=== PATIENT | male | born 1980 | race African-American/Black ===

== ENCOUNTER 2018-07-11 18:00 | Inpatient (IN) ==
--- NOTE | 2018-07-11 18:43 | Diag Imaging Result Doc PS360 ---
EXAM: CHEST-2 VIEWS HISTORY: cough CHF TECHNIQUE: Chest two views COMPARISON: 04/29/2018 FINDINGS: The heart remains enlarged. There is a moderate-sized right-sided pleural effusion. This is larger than on the prior exam. There is basilar atelectasis on the right and there may be underlying infiltrates. The pulmonary vessels are not distended. No left-sided pleural effusion. IMPRESSION: Cardiomegaly with increase in the size of the right pleural effusion, but no pulmonary edema. Electronically signed by Everardo Alvarez 07/11/2018 6:40 PM
[2018-07-11 19:55] LABS: BASO# 0.03 X1000 (0.0-0.2); BASO% 0.4 % (0.0-0.8); EOS# 0.14 X1000 (0.0-0.7); EOS% 1.9 % (0.0-10.0); HEMATOCRIT 44.4 % (42.0-52.0); HEMOGLOBIN 15.1 g/dL (14.0-18.0); LYMPH% 27.2 % (20.5-51.1); MCH 27.5 PG (27-31); MCV 80.9 FL (81-99); MONO# 0.76 X1000 (0.11-0.59); MONO% 10.4 % (1.7-9.3); MPV 10.2 FL (7.4-10.4); NEUT# 4.41 X1000 (1.4-6.5); NEUT% 60.1 % (42.2-75.2); PLT 284 X1000 (130-400); RBC 5.49 XMIL (4.7-6.1); RDW 19.8 % (11.5-14.5); WBC 7.34 X1000 (4.8-10.8)
[2018-07-11 20:24] LABS: AGAP 15; ALB/GLOB RATIO 1.5; ALBUMIN 3.7 g/dL (3.5-5.0); ALKALINE PHOSPHATASE 132 U/L (32-122); BUN 17 mg/dL (8-22); CALCIUM 8.9 mg/dL (8.8-10.2); CHLORIDE 104 mmol/L (98-107); COSMO 285; ESTIMATED GFR > 60; GLUCOSE 104 mg/dL (70-104); GOT 24 U/L (10-34); GPT 15 U/L (10-44); SODIUM 142 mmol/L (136-145); TCO2 23 mmol/L (25-35); TOTAL PROTEIN 6.1 g/dL (6.3-8.3)
[2018-07-11] MEDS ORDERED: LASIX IV ONE ×2 (21:04→22:04)
[2018-07-11 21:29] LABS: URINE SOURCE CLEAN CATCH
[2018-07-11 21:34] LABS: BILIRUBIN URINE SMALL (NEGATIVE); BLOOD URINE SMALL (NEGATIVE); COLOR YELLOW; GLUCOSE URINE NEGATIVE (NEGATIVE); KETONE URINE NEGATIVE (NEGATIVE); LEUKOCYTES URINE NEGATIVE (NEGATIVE); NITRITE URINE NEGATIVE (NEGATIVE); PH URINE 5.5; PROTEIN URINE 300 mg/dL (NEGATIVE); SP GRAVITY URINE 1.016; TURBIDITY URINE CLEAR (CLEAR); UROBILINOGEN URINE 6 mg/dL (NORMAL)
[2018-07-11 21:36] LABS: UR EPITHELIAL CELLS <10 /HPF (<10); URINE BACTERIA NEGATIVE /HPF; URINE RBC <10 /HPF (<10); URINE WBC <10 /HPF (<10)
--- NOTE | 2018-07-11 21:50 | PROVIDER DOCUMENTATION ---
This chart was entered by Migdalia Flowers Scribe, acting as scribe for Arley Mcintyre MD. HPI-Respiratory General - General Chief Complaint: Shortness of Breath Stated Complaint: EDEMA, SOB Time Seen by Provider: 07/11/18 19:13 Source: patient Allergies/Adverse Reactions: Patient Allergies Allergy/AdvReac Type Severity Reaction Status Date / Time No Known Allergies Allergy Verified 04/26/18 12:15 Home Medications: Home Medication List Medication Instructions Recorded Confirmed Last Taken Type Furosemide [Lasix] 40 mg PO BID #60 tab 11/29/17 04/26/18 04/02/18 Rx ROSUVAstatin [Crestor] 20 mg PO DAILY #120 tab 11/29/17 04/26/18 04/02/18 Rx Aspirin 81 mg PO DAILY chewtab 01/14/18 04/26/18 04/02/18 Rx Potassium Chloride E.r. [Micro-K] 10 meq PO BID #60 cap 01/14/18 04/26/18 Rx Digoxin [Lanoxin] 250 microgm PO DAILY #30 tab 02/04/18 04/26/18 04/02/18 Rx Carvedilol [Coreg] 6.25 mg PO Q12HR 04/03/18 04/26/18 04/02/18 History Losartan [Cozaar] 50 mg PO DAILY 04/03/18 04/26/18 04/02/18 History Spironolactone [Aldactone] 25 mg PO BID #60 tab 05/02/18 Unknown Rx - History of Present Illness-Resp Nature of Presenting Problem: Pt is 38/m presenting to ED w/ SOB that has been present and worsening for the last 3 weeks. Pt sts that he has gained 15 lbs in water weight and can no longer lay flat at bedtime. He has been using an O2 machine at home to sleep. Pt has hx of CHF and recent pneumonia. Does take lasix daily. Quality of Pain: reports: none Severity in ED: reports: moderate Onset/Duration: reports: other (3 wks) Timing: reports: still present Context: reports: other (CHF and recent pneumonia) Cough Quality/Degree: reports: no cough Episode Frequency: chronic episodes Current Respiratory Medication Therapy: Initiated none Modifying Factors: improves with: oxygen, sitting upright Associated Symptoms: reports: denies symptoms Similar Symptoms Previously?: Yes Recently seen or treated by another doctor?: No Review of Systems - Adult - REVIEW OF SYSTEMS - ADULT Constitutional: reports: no symptoms reported. denies: chills, fever Eyes: reports: no symptoms reported Ears, Nose, Mouth & Throat: reports: no symptoms reported Cardiovascular: reports: edema. denies: chest pain Respiratory: reports: no symptoms reported, shortness of breath. denies: cough , wheezing Gastrointestinal: reports: no symptoms reported. denies: abdominal pain, nausea , vomiting Genitourinary: reports: no symptoms reported Musculoskeletal: reports: no symptoms reported Integumentary: reports: no symptoms reported Neurological: reports: no symptoms reported. denies: dizziness/vertigo, headache/migraines Psychiatric: reports: no symptoms reported Endocrine: reports: no symptoms reported Hematologic/Lymphatic: reports: no symptoms reported Allergic/Immunologic: reports: no symptoms reported All Other Systems: Reviewed and Negative Past History - Adult - PAST MEDICAL HISTORY-ADULT Review of Records: reports: Old Records Reviewed, Nursing Assessment Review, Medications Reviewed, Social history reviewed & non-contributory. Major Childhood Illnesses: reports: denies history Cardiovascular: reports: CHF, HTN (non-compliant with meds), hyperlipidemia Respiratory: reports: asthma Gastrointestinal: reports: GERD Obstetrical/Gynecological: reports: denies history Genitourinary: reports: denies history Musculoskeletal: reports: denies history Neurological: reports: CVA Psychiatric: reports: denies history Endocrine/Immune: reports: denies history Other Conditions: reports: denies history - PRIOR SURGERIES/PROCEDURES Surgical/Procedure History: reports: reviewed, not pertinent, other (ear sx) - IMMUNIZATION STATUS Childhood Immunizations: See Nurse Assessment Flu Vaccine: See Nurse Assessment - FAMILY HISTORY Family History: CAD over 55 yo - SOCIAL HISTORY Smoking: cigarettes Provider spent 3-5 mins advising pt. on dangers of tobacco.: Discussed manners to quit use, and f/u contacts for add'l counseling. Substance Use: none/never Alcohol Use Frequency: never Living Situation: family Physical Exam-General - PHYSICAL EXAM-ADULT Initial Vital Signs Reviewed: Yes - CONSTITUTIONAL General Appearance: appears well, alert, no apparent distress - EYES Eyes: PERRL/EOMI - HEAD, EARS, NOSE, MOUTH & THROAT HENMT: normocephalic/atraumatic, moist mucous membranes, normal ENT inspection, TMs normal, pharynx normal - NECK Neck: non-tender, full range of motion, supple - RESPIRATORY Respiratory: chest non-tender, lungs clear, normal breath sounds - CARDIOVASCULAR Cardiovascular: normal peripheral pulses, regular rate, rhythm. negative: no edema (Pt has edema to bilateral lower extremities) - LYMPHATIC Lymphatic: no adenopathy - MUSCULOSKELETAL Back Exam: normal inspection, no CVA tenderness Extremity: normal range of motion, non-tender, normal gait, normal inspection - SKIN Integumentary: normal color, warm/dry - NEUROLOGIC Neurologic: grossly normal - PSYCHIATRIC Psych/Mental Status: normal mood/affect, normal thought content, normal thought process, oriented x 3 - HEART Score HEART Score: History: Slightly Suspicious HEART Score: ECG: Normal HEART Score: Age: < or = 45 Years HEART Score: Risk Factors for Atherosclerotic Disease: > or = 3 Risk Factors or History of Atherosclerotic Disease HEART Score: Troponin: < or = Normal Limit Total HEART Score:: 2 Progress - PLAN OF CARE/RESULTS Progress/Plan/Lab Results: Vital Signs - 8 hr 07/11/18 18:13 07/11/18 19:17 07/11/18 19:32 Temperature 98.0 F Pulse Rate 78 71 56 L Respiratory Rate 20 16 10 L Blood Pressure 131/95 121/98 136/100 O2 Sat by Pulse Oximetry 95 97 07/11/18 19:47 07/11/18 20:02 07/11/18 20:17 Temperature Pulse Rate 76 55 L 65 Respiratory Rate 18 18 12 Blood Pressure 132/111 144/105 135/105 O2 Sat by Pulse Oximetry 91 L 97 07/11/18 20:32 07/11/18 20:47 07/11/18 21:02 Temperature Pulse Rate 73 53 L 66 Respiratory Rate 18 18 18 Blood Pressure 137/105 142/98 138/107 O2 Sat by Pulse Oximetry 97 94 L 98 07/11/18 21:17 07/11/18 21:32 07/11/18 21:34 Temperature Pulse Rate 77 Respiratory Rate 18 Blood Pressure 143/107 144/118 O2 Sat by Pulse Oximetry 95 99 91 L 07/11/18 21:43 07/11/18 21:47 07/11/18 22:18 Temperature Pulse Rate Respiratory Rate Blood Pressure 158/128 147/112 136/112 O2 Sat by Pulse Oximetry 98 93 L 93 L 07/11/18 20:20 Influenza Screen - Final Nasopharyngeal Laboratory Results - last 24 hr 07/11/18 07/11/18 07/11/18 19:29 19:29 19:29 WBC 7.34 RBC 5.49 Hgb 15.1 Hct 44.4 MCV 80.9 L MCH 27.5 MCHC 34.0 RDW Std Deviation 19.8 H Plt Count 284 MPV 10.2 Immature Gran % (Auto) 0.0 Neut % (Auto) 60.1 Lymph % (Auto) 27.2 Castro % (Auto) 10.4 H Eos % (Auto) 1.9 Baso % (Auto) 0.4 Immature Gran # (Auto) 0.00 Neut # (Auto) 4.41 Lymph # (Auto) 2.00 Castro # (Auto) 0.76 H Eos # (Auto) 0.14 Baso # (Auto) 0.03 Sodium 142 Potassium 4.0 Chloride 104 Carbon Dioxide 23 L Anion Gap 15 BUN 17 Creatinine 1.0 Estimated GFR/1.73 m2 > 60 BUN/Creatinine Ratio 17 Glucose 104 Calculated Osmolality 285 Calcium 8.9 Total Bilirubin 2.60 H AST 24 ALT 15 Alkaline Phosphatase 132 H Troponin T [id number]-[id number] Pept 9620 H Total Protein 6.1 L Albumin 3.7 Globulin 2.4 Albumin/Globulin Ratio 1.5 Urine Source Urine Color Urine Turbidity Urine pH Ur Specific [place] Urine Protein Ur Glucose (Stick) Ur Ketones (Stick) Urine Blood Urine Nitrite Urine Bilirubin Urobilinogen Dipstick Urine Leukocytes Urine WBC (Auto) Urine RBC (Auto) U Epithel Cells (Auto) Urine Bacteria (Auto) 07/11/18 07/11/18 19:29 20:18 WBC RBC Hgb Hct MCV MCH MCHC RDW Std Deviation Plt Count MPV Immature Gran % (Auto) Neut % (Auto) Lymph % (Auto) Castro % (Auto) Eos % (Auto) Baso % (Auto) Immature Gran # (Auto) Neut # (Auto) Lymph # (Auto) Castro # (Auto) Eos # (Auto) Baso # (Auto) Sodium Potassium Chloride Carbon Dioxide Anion Gap BUN Creatinine Estimated GFR/1.73 m2 BUN/Creatinine Ratio Glucose Calculated Osmolality Calcium Total Bilirubin AST ALT Alkaline Phosphatase Troponin T < 0.010 Pvu-[id number]-Wbiyjxaqquq Pept Total Protein Albumin Globulin Albumin/Globulin Ratio Urine Source CLEAN CATCH Urine Color YELLOW Urine Turbidity CLEAR Urine pH 5.5 Ur Specific [place] 1.016 Urine Protein 300 A Ur Glucose (Stick) NEGATIVE Ur Ketones (Stick) NEGATIVE Urine Blood SMALL A Urine Nitrite NEGATIVE Urine Bilirubin SMALL A Urobilinogen Dipstick 6 A Urine Leukocytes NEGATIVE Urine WBC (Auto) <10 Urine RBC (Auto) <10 U Epithel Cells (Auto) <10 Urine Bacteria (Auto) NEGATIVE Orders Category Date Time Status Saline Loc DIRECTED Care 07/11/18 18:20 Active NPO Diet 07/11/18 18:20 Active CHEST-2 VIEWS [RAD] Stat Exams 07/11/18 18:21 Completed BLOOD CULTURE [BLDCUL] Stat Lab 07/11/18 20:18 Results BNP [PRO B-NATRIURETIC PEPTIDE] Stat Lab 07/11/18 19:29 Completed CBC WITH ELECTRONIC DIFF [HEME] Stat Lab 07/11/18 19:29 Completed COMPREHENSIVE METABOLIC PANEL [CHEM] Stat Lab 07/11/18 19:29 Completed INFLUENZA SCREEN A/B Stat Lab 07/11/18 20:20 Completed TROPONIN T Stat Lab 07/11/18 19:29 Completed URINALYSIS W/POSS RFLX CULT [URINALYSIS] Stat Lab 07/11/18 20:18 Completed Furosemide [Lasix] Med 07/11/18 22:04 Discontinued 20 mg IV NOW ONE Furosemide [Lasix] Med 07/11/18 21:04 Discontinued 40 mg IV NOW ONE EKG [EKG] Stat Ther 07/11/18 18:21 Ordered Transfer/Admit Order [TRANSFER] Routine Transfer 07/11/18 22:11 Ordered Result Diagrams: 07/11/18 19:29 07/11/18 19:29 - XRAY 1 XRAY: Bilateral XRAY Study: Chest Impression: Abnormal (FINDINGS: The heart remains enlarged. There is a moderate- sized right-sided pleural effusion. This is larger than on the prior exam. There is basilar atelectasis on the right and there may be underlying infiltrates. The pulmonary vessels are not distended. No left-sided pleural effusion. IMPRESSION: Cardiomegaly with increase in the size of the right pleural effusion, but no pulmonary edema. Electronically signed by Everardo Alvarez 07/11/2018 6:40 PM 07/11/18 1840) Departure - Departure Date of Disposition Decision: 07/11/18 Time of Disposition Decision: 21:50 DIAGNOSIS: CHF exacerbation Qualifiers: Heart failure type: unspecified Qualified Code(s): I50.9 - Heart failure, unspecified Disposition: ADMITTED INPATIENT 09 Certified Medical Emergency: Emergent Condition: Stable Referrals and Follow-Ups: Lamberto Conteh Jr, MD [Primary Care Provider] - - Critical Care Note This patient required my direct & personal management of CC.: No Attestation - Physician/ ANTONINA Attestation Patient care was provided by Advanced Practice Provider:: No The physician spent face to face time with patient:: Yes Advanced Practice Provider documentation review:: Supervising physician onsite and consulted in the evaluation and care of this patient. The physician did have a face to face encounter with the patient. This chart was documented by the indicated scribe, (Migdalia Flowers, [place]) and accurately reflects the services I performed and decisions made by me, Arley Mcintyre MD, as attested by the provider's signature.
[2018-07-11] MEDS ORDERED: ZOFRAN IV PRN (22:30)
[2018-07-11] MEDS ORDERED: TYLENOL PO PRN (22:30)
--- NOTE | 2018-07-11 23:04 | HISTORY AND PHYSICAL ---
PRIMARY PHYSICIAN: Dr. Lamberto Conteh. REASON FOR ADMISSION: Shortness of breath for the last 1 week and abdominal and leg swelling for the last couple of weeks. HISTORY OF PRESENT ILLNESS: Mr. Darrin Schwartz is a 38-year-old man with a longstanding history of chronic systolic heart failure with ejection fraction of about 10% to 15%. He comes in complaining of about a 3-week history of leg swelling, 2-week history of abdominal swelling, and 1 week of progressive dyspnea on exertion with orthopnea and a nonproductive cough. He denies any fever, chills or weight loss. He denies any chest pain with this. He also says that for the last couple of days he has been having PND. He says he also complains of easy satiety with aforementioned simultaneous abdominal swelling. His urine output has not changed. He states he has been compliant with his home medications and does not take any czkr-[id number] medications or eat any canned foods whatsoever. REVIEW OF SYSTEMS: Notable for nothing. No upper respiratory symptoms. He denies any bleeding from any orifice. No complaints. No GI complaints. No arthralgia or rash. ALLERGIES: No known drug allergies. MEDICATIONS: Have not been reconciled, though he says he takes Lasix 40 mg twice a day, and an aspirin. As far as the other medications concerned, he cannot tell me any more than this. PAST SURGICAL HISTORY: He has had right ear surgery . FAMILY HISTORY: Notable for heart disease and diabetes. SOCIAL HISTORY: Smokes a few cigarettes a day. He states he no longer engages in cocaine or marijuana use since last year. LAB WORK: White count 7000, hemoglobin and hematocrit 15 and 44, platelets 284. There is a normal differential. His BUN is 17, creatinine 1.0. Total bilirubin is 2.6. Alkaline phosphatase is 132, but AST and ALT are normal. Troponin is negative. ProBNP 9000. Urinalysis showed 200 protein. His flu screen was negative. Chest x-ray shows increased right pleural effusion with cardiomegaly. No increased vascular markings. EKG at this point in time was ordered but has not been performed. PHYSICAL EXAMINATION: VITAL SIGNS: Blood pressure is 136/112, heart rate 77, respiratory rate 18, temperature 98 degrees. He is 93% on 2 L. GENERAL: This is a middle-aged male who is in mild respiratory distress with mild use of accessory muscles. He is sitting up in bed. He is alert and oriented. Has a normal mood and affect. HEENT: Head is normocephalic, atraumatic. Eyes PERRL, EOMI. He is anicteric, not pale. ENT: Oropharynx exam is grossly normal. NECK: Supple. Mild JVD. No bruits or thyromegaly. CHEST: He has decreased air entry in his right lung. Decreased vocal resonance. Increased dullness to percussion in his right lower lung. He has bilateral lung wheezes. No crepitations heard. CARDIOVASCULAR: First and 2nd heart sounds heard. No murmurs, gallops or rubs. Rhythm is regular. ABDOMEN: Distended with an everted umbilicus. Bowel sounds are hypoactive. No masses or megaly appreciated. RECTAL EXAM: Deferred at this time. EXTREMITIES: The patient has 2+ pitting edema up to his knees. His distal lower extremity pulses are barely palpable, and his lower extremities are cool to touch. His distal upper extremity pulses are 1+, regular and symmetrical. No clubbing or peripheral cyanosis noted. SKIN: Intact. No breakdown, lesion or erythema. MUSCULOSKELETAL: Grossly normal. ASSESSMENT: 1. Right pleural effusion. Etiology could be multifactorial, i.e., chronic congestive heart failure with possible underlying mass, although infection is a differential, highly unlikely. I will plan to aggressively diurese the patient over the next 48 hours. If the patient's symptoms do not improve and his right pleural effusion persists, then a therapeutic/diagnostic thoracentesis will be needed. Would recommend resuming all the patient's anti-failure medications and consult Cardiology to see the patient. The patient will be on higher doses of Lasix than he takes at home, and symptomatic treatment with DuoNeb. 2. Chronic obstructive pulmonary disease. Consider DuoNeb. 3. Hypertension. Continue anti-failure medications when available for blood pressure control. 4. The patient will have serial chest films and basic metabolic panel to document response to our treatment. If the patient is still symptomatic and keeps having repeated admissions, he may be a candidate for Entresto. Consider possibility of defibrillator placement due to his low ejection fraction and systolic heart failure. Defer to pt sitter. cc: Min Jiménez MD
[2018-07-11] MEDS: DUONEB (A & A) INH SCH (23:07)
[2018-07-11] MEDS: LASIX IV SCH (23:24)
[2018-07-11] MEDS: LOVENOX SUBQ SCH (23:24)
[2018-07-12 05:35] LABS: BASO# 0.05 X1000 (0.0-0.2); BASO% 0.7 % (0.0-0.8); EOS% 2.6 % (0.0-10.0); HEMATOCRIT 43.8 % (42.0-52.0); HEMOGLOBIN 14.9 g/dL (14.0-18.0); LYMPH% 27.7 % (20.5-51.1); MCH 27.7 PG (27-31); MCV 81.4 FL (81-99); MONO# 0.71 X1000 (0.11-0.59); MONO% 9.4 % (1.7-9.3); NEUT# 4.52 X1000 (1.4-6.5); NEUT% 59.6 % (42.2-75.2); PLT 304 X1000 (130-400); RBC 5.38 XMIL (4.7-6.1); RDW 19.8 % (11.5-14.5); WBC 7.58 X1000 (4.8-10.8)
[2018-07-12 06:17] LABS: AGAP 14; BUN 16 mg/dL (8-22); CALCIUM 8.9 mg/dL (8.8-10.2); CHLORIDE 101 mmol/L (98-107); COSMO 289; CREATININE 0.9 mg/dL (0.7-1.2); ESTIMATED GFR > 60; GLUCOSE 221 mg/dL (70-104); POTASSIUM 3.3 mmol/L (3.5-5.1); SODIUM 141 mmol/L (136-145); TCO2 26 mmol/L (25-35)
[2018-07-12] MEDS: LASIX IV SCH ×2 (06:21→13:42)
[2018-07-12] MEDS: DUONEB (A & A) INH SCH ×5 (07:31→23:03)
[2018-07-12] MEDS: COREG PO SCH ×2 (08:46→21:09)
[2018-07-12] MEDS: ASPIRIN PO SCH (08:46)
[2018-07-12] MEDS: KLOR-CON PO SCH ×2 (08:46→21:09)
--- NOTE | 2018-07-12 13:22 | PROGRESS NOTE ---
DATE: 07/12/2018 SUBJECTIVE: This morning Mr. Schwartz refers to be doing a little better. He thinks his breathing is improving and swelling in the lower extremities is getting better Mr. Schwartz is known to have severe systolic heart failure, and he refers to be compliant with his medication. However, for the past couple days, he has been getting remarkably swollen and short of breath. OBJECTIVE: Vitals: Blood pressure is 123/93, pulse is 72, respiration is 19 and temperature is 97.7 degrees. The patient was saturating 100% on 2 L of oxygen. General exam: Mr. Schwartz is a 28-year-old gentleman. He is in bed. He was not in any cardiopulmonary distress. HEENT: Mucosa is pink and moist. Anicteric. Acyanotic. Neck: Supple. Chest: Air entry is bilaterally reduced. There are crepitations in both posterior lung funez. Cardiovascular: Regular rate and rhythm. I did not appreciate any murmurs. Abdomen: Soft. It is distended. There is positive hepatosplenomegaly palpated. There is also positive hepatojugular reflux and both jugular veins are dilated as well. Extremities: About 3+ pedal edema. : Unremarkable. DIAMOND SANDER: Patient is awake, alert, oriented, very conversational. No focal deficits. LABORATORY DATA: WBC is 7.58, hemoglobin is 14.9, platelet count of 304. Chemistry is also reviewed: Potassium is 3.2. The rest of chemistry is unremarkable. The patient's pro B is 9620. This is remarkably worse than the last time he was in the hospital. IMAGING STUDIES: A chest x-ray shows cardiomegaly with increase in the size of the right pleural effusion, but no pulmonary edema. Intake/output: Urine output is 1975 overnight. The patient is currently negative balance of 2150. CURRENT MEDICATIONS: 1. Aspirin 81 mg daily. 2. Coreg 6.25 b.i.d. 3. Lovenox for DVT prophylaxis. 4. Lasix 60 mg IV q. 8 hours. 5. Potassium 10 mg b.i.d. daily. ASSESSMENT: 1. Acute hypoxemic respiratory failure secondary to pulmonary edema. The patient continues to be on nasal cannula oxygenation. Saturation is up to 100 this morning. 2. Bilateral pleural effusions with some pulmonary edema, secondary to congestive heart failure. 3. Acute on chronic severe systolic heart failure with ejection fraction of 11% on a recent stress test done on 11/29/2017. 4. Severe dilated cardiomyopathy, presumably nonischemic. However, a stress test that was done November 2017 was suggestive of ischemic components. Will be pending Cardiology evaluation and go from there. I think Mr. Schwartz will benefit from a left heart catheterization to rule out any correctable coronary artery disease. 5. History of alcohol abuse in the past noted. 6. Hypertension is controlled. PLAN: So, in general, I think Mr. Schwartz is in acute congestive heart failure exacerbation. We are going to continue with the diuretic therapy and his other home medications. I think he carries the diagnosis of nonischemic cardiomyopathy. However, a stress test done in 2017 did show that he definitely also has coronary artery disease (ischemic cardiomyopathy). Will be pending cardiology evaluation this time. I think Mr. Schwartz would benefit from a left heart catheterization to rule out any correctable coronary artery disease and probably evaluate at a later date for AICD. cc: Khris Westbrook MD
[2018-07-12] MEDS: ENTRESTO 24 MG-26 MG TABLET PO SCH ×2 (13:42→21:09)
[2018-07-12] MEDS: LOVENOX SUBQ SCH (21:09)
[2018-07-13] MEDS: LASIX IV SCH ×2 (01:32→13:09)
[2018-07-13 05:59] LABS: BASO# 0.04 X1000 (0.0-0.2); BASO% 0.5 % (0.0-0.8); EOS# 0.24 X1000 (0.0-0.7); HEMATOCRIT 43.1 % (42.0-52.0); HEMOGLOBIN 14.8 g/dL (14.0-18.0); IMM GRAN# 0.02 X1000 (0.0-0.04); IMM GRAN% 0.2 % (0.0-0.5); LYMPH# 1.84 X1000 (1.2-3.4); LYMPH% 22.7 % (20.5-51.1); MCH 27.6 PG (27-31); MCHC 34.3 g/dL (33-37); MCV 80.4 FL (81-99); MONO# 0.87 X1000 (0.11-0.59); MONO% 10.7 % (1.7-9.3); MPV 10.8 FL (7.4-10.4); NEUT# 5.11 X1000 (1.4-6.5); NEUT% 62.9 % (42.2-75.2); PLT 304 X1000 (130-400); RBC 5.36 XMIL (4.7-6.1); RDW 19.7 % (11.5-14.5); WBC 8.12 X1000 (4.8-10.8)
[2018-07-13 06:38] LABS: AGAP 12; ALBUMIN 3.3 g/dL (3.5-5.0); BUN 13 mg/dL (8-22); CALCIUM 8.7 mg/dL (8.8-10.2); CHLORIDE 96 mmol/L (98-107); COSMO 274; CREATININE 0.9 mg/dL (0.7-1.2); ESTIMATED GFR > 60; GLUCOSE 93 mg/dL (70-104); PHOSPHORUS 4.5 mg/dL (2.7-4.5); POTASSIUM 3.1 mmol/L (3.5-5.1); SODIUM 137 mmol/L (136-145); TCO2 29 mmol/L (25-35)
[2018-07-13] MEDS: DUONEB (A & A) INH SCH ×5 (07:35→23:32)
[2018-07-13] MEDS ORDERED: KLOR-CON PO ONE (07:35)
[2018-07-13] MEDS: COREG PO SCH ×3 (08:18→20:59)
[2018-07-13] MEDS: ENTRESTO 24 MG-26 MG TABLET PO SCH (08:19)
[2018-07-13] MEDS: ASPIRIN PO SCH (08:19)
[2018-07-13] MEDS: KLOR-CON PO SCH ×3 (08:19→20:59)
--- NOTE | 2018-07-13 10:03 | Diag Imaging Result Doc PS360 ---
EXAM: CHEST-2 VIEWS - 07/13/2018 HISTORY: R pleural effusion CHF TECHNIQUE: Chest two views COMPARISON: 07/11/2018 FINDINGS: There is been mild decrease in right chest opacity compared to prior. There is persistent moderate subpulmonic pleural effusion and/or elevated hemidiaphragm on the right. The left lung appears mostly clear. There is no substantial left pleural effusion identified. There is no pneumothorax identified. IMPRESSION: Mild decrease in right chest opacity compared to prior. Persistent moderate subpulmonic pleural effusion and/or elevated hemidiaphragm on the right. Electronically signed by Felton Dickinson 07/13/2018 10:00 AM
--- NOTE | 2018-07-13 12:17 | PROGRESS NOTE ---
DATE: 07/13/2018 CARDIOLOGY FOLLOW-UP NOTE: SUBJECTIVE: Patient continues without shortness of breath on room air. There has been no chest pain. He has not been able to afford Entresto, as he has no health insurance and does not have Medicaid. He has disability application in progress, and it is pending. OBJECTIVE: Vital Signs: Blood pressure 118/80, heart rate 69 and regular, oxygen saturation 95%. Neck: Significant jugular distention is evident, consistent with markedly elevated central venous pressure. Chest: Clear to auscultation bilaterally. Cardiac: Exam reveals a regular rate and rhythm without appreciable murmur or gallop. Extremities: Demonstrate 2+ pretibial edema. LABORATORY DATA: Includes a white blood cell count 8.12, hematocrit 43.1, hemoglobin 14.8, platelet count 304,000. Sodium 137, potassium 3.1, chloride 96, carbon dioxide 29, BUN 13, creatinine 0.9, glucose 93, albumin 3.3. IMPRESSION: 1. Acute on chronic systolic heart failure. 2. Severe nonischemic cardiomyopathy. 3. Hypertensive cardiovascular disease. RECOMMENDATIONS: 1. Continue efforts to diurese with IV Lasix. 2. Given patient's financial difficulty, he will not be able to afford Entresto. We will go back to using losartan as previously. 3. Ultimately, patient needs to be referred to Electrophysiology arrhythmia service for consideration of implantable defibrillator. 4. The patient again advised that he is disabled from a cardiovascular standpoint due to severe cardiomyopathy. cc: Perez Mckenna MD
--- NOTE | 2018-07-13 13:15 | PROGRESS NOTE ---
DATE: 07/13/2018 SUBJECTIVE: This morning, Mr. Schwartz refers to be doing fairly okay. He was resting very comfortably in bed. No family member was there. He denies any chest pain or shortness of breath. OBJECTIVE: Vital Signs: Blood pressure is 140/86, pulse of 77, respirations 18, temperature 98.2 degrees. The patient's intake and output showed urine output was 4725. The patient is currently in negative balance of 4780. Current weight not documented today. General: Mr. Schwartz is a 38- year-old gentleman. He was in bed. He did not seems to be in any cardiopulmonary distress. HEENT: Mucosa is pink and moist. Anicteric. Acyanotic. Neck: Supple. There is still JVD. Chest: Air entry was bilaterally reduced. There are crepitations posteriorly. Cardiovascular: Regular rate and rhythm. No murmurs, no rubs, no gallops. Abdomen: Soft. It is minimally distended. There is positive hepatosplenomegaly, and there is positive hepatojugular reflux. Extremities: There is 3+ pedal edema. [employer]: The patient is awake, alert, and oriented. LABORATORY DATA: WBC is 8.12, hemoglobin is 14.8, platelet count of 308,000. Chemistry is also reviewed. Potassium is 3.1. Rest of the chemistry is unremarkable. CURRENT MEDICATIONS: Include: 1. Aspirin 81 mg daily. 2. Carvedilol 6.25 p.o. every 12 hours. 3. Lovenox for DVT prophylaxis. 4. Lasix 60 mg IV every 12 hours. 5. Losartan 25 mg daily. ASSESSMENT: 1. Acute hypoxemic respiratory failure on presentation due to pulmonary edema, improved. The patient is currently cycling between room air and 4 L of nasal cannula, and a chest x-ray reveals mild decrease in the right opacity. There is still persistent moderate subpulmonic pleural effusion. 2. Bilateral pleural effusion with pulmonary edema secondary to congestive heart failure. 3. Acute on chronic severe systolic heart failure with ejection fraction of 11%. The patient is being seen by Cardiology as well. 4. Severe dilated cardiomyopathy, presumably nonischemic. A stress test done in 11/2017 does, however, suggest some ischemic component. Cardiology is on board. 5. History of alcohol abuse. The patient has been counseled. 6. Hypertension is controlled. PLAN: In general, Mr. Schwartz is a 38-year-old gentleman who is known to have dilated nonischemic cardiomyopathy, congestive heart failure with ejection fraction of 11%. It has been documented multiple times that he is not very compliant with his medications and with his diet. He has been in the hospital for the past 2 days because of fluid overload and respiratory distress from pulmonary edema. He seems to be doing a lot better. He is diuresing well on the current diuretic regimen. He has been seen by Cardiology. Entresto has been changed to losartan because of fear of not being able to afford. Disposition is going to depend on his hospital course. cc: Khris Westbrook MD
[2018-07-13] MEDS: LOVENOX SUBQ SCH ×2 (19:40→20:59)
[2018-07-14] MEDS: LASIX IV SCH ×2 (00:39→12:29)
[2018-07-14 06:08] LABS: AGAP 11; BUN 14 mg/dL (8-22); CHLORIDE 100 mmol/L (98-107); COSMO 281; CREATININE 0.9 mg/dL (0.7-1.2); ESTIMATED GFR > 60; GLUCOSE 115 mg/dL (70-104); POTASSIUM 3.8 mmol/L (3.5-5.1); SODIUM 140 mmol/L (136-145); TCO2 29 mmol/L (25-35)
[2018-07-14] MEDS: DUONEB (A & A) INH SCH ×5 (07:25→23:17)
[2018-07-14] MEDS ORDERED: COZAAR PO SCH (09:00)
[2018-07-14] MEDS: ASPIRIN PO SCH (09:03)
[2018-07-14] MEDS: COREG PO SCH ×2 (09:03→20:35)
[2018-07-14] MEDS: KLOR-CON PO SCH ×2 (09:03→20:35)
--- NOTE | 2018-07-14 09:48 | CONSULTATION ---
DATE OF CONSULTATION: 07/12/2018 IMPRESSION: 1. Acute on chronic systolic heart failure. 2. Severe dilated nonischemic cardiomyopathy. He has had multiple admissions over the past 6 months for recurrent congestive heart failure. 3. Hypertension. RECOMMENDATIONS: 1. Diurese with IV Lasix. 2. Switch from Losartan to Entresto as tolerated 3. Echocardiography to be repeated. HISTORY: This 38-year-old male has a history of severe nonischemic dilated cardiomyopathy, chronic systolic heart failure with multiple exacerbations in the last 6 months, and hypertension. He was admitted to the emergency room with recurrent CHF. He reports a 2-week history of increased tendency for edema and a 10-day history of progressive shortness of breath and orthopnea symptoms. There has been no chest pain. He relates that most recently his Lasix did not seem to give him much diuretic effect. He has been found to have objective evidence of acute on chronic systolic heart failure and has been started on IV Lasix for diuresis. He is starting to feel better already. PAST MEDICAL HISTORY: 1. Severe dilated nonischemic cardiomyopathy with left ventricular ejection fraction of 15% to 20% by echocardiography about 6 months ago. 2. Hypertension. PAST SURGICAL HISTORY: Includes unspecified right ear surgery. ALLERGIES: No known drug allergies. MEDICATIONS PRIOR TO ADMISSION: As listed. SOCIAL HISTORY: He smokes less than a half pack of cigarettes per day. He has a previous history of cocaine use but no longer uses this. FAMILY HISTORY: Negative for premature coronary disease. REVIEW OF SYSTEMS: PULMONARY: Noteworthy for progressive dyspnea. There has been no significant cough. GASTROINTESTINAL: Negative. CONSTITUTIONAL: Negative. Remainder of review of systems negative/noncontributory with 14 total systems reviewed. PHYSICAL EXAMINATION: GENERAL: This is an adult male in no distress. VITAL SIGNS: Blood pressure 124/89, heart rate 59, oxygen saturation 99% on nasal cannula oxygen at 2 L/minute. HEENT: Extraocular muscles appear intact. Mucous membranes are moist. NECK: Supple. Jugular venous distention is evident, suggesting elevated central venous pressure. CHEST: Clear to auscultation bilaterally. CARDIAC: Exam reveals a regular rate and rhythm without appreciable murmur or gallop. ABDOMEN: Soft. Bowel sounds audible. EXTREMITIES: Demonstrate mild pretibial edema. NEUROLOGIC: Exam reveals him to be alert and fully oriented. His speech is full, and he moves all 4 extremities equally well. SKIN: Warm and dry. PSYCHIATRIC: Exam reveals his mood to be appropriate. LABORATORY DATA: Includes a white blood cell count of 7.58, hematocrit of 43.8, hemoglobin of 14.9, platelet count of 304. Sodium 141, potassium 3.3, chloride 101, carbon dioxide 26, BUN 16, creatinine 0.9. Glucose 221. TSH 3.3. Troponin-T less than 0.01. ProB natriuretic peptide level 9620. DIAGNOSTICS: Twelve-lead ECG not yet recorded in electronic medical record. cc: Perez Mckenna MD
--- NOTE | 2018-07-14 14:54 | PROGRESS NOTE ---
DATE: 07/14/2018 INTERVAL HISTORY: The patient's dyspnea has essentially resolved at this point. Denies cough, wheezing, shortness of breath. Reports that he has oxygen off most of the night and appears to have had reasonable O2 saturations. Still has complaints of lower extremity edema. This is somewhat improved from previous. No other new complaints. N other acute events overnight. REVIEW OF SYSTEMS: A 12 point review of systems is negative except as per interval history. LABS: Basic metabolic panel unremarkable aside from glucose 115. BNP 4399, significantly improved from previous 9620. VITAL SIGNS: T-max 98.2 degrees, pulse 81, respirations 19, blood pressure 118/ 98, O2 saturation 100% on room air. PHYSICAL EXAMINATION: General: No acute distress. Vitals: As above. HEENT: Normocephalic, atraumatic. Moist mucous membranes. No cervical adenopathy. Cardiovascular: Regular rate and rhythm. No murmurs, rubs, or gallops. Pulmonary: Clear to auscultation bilaterally. No wheezing, rales, or rhonchi. Abdomen: Soft, nontender, nondistended. Bowel sounds positive. Extremities: Peripheral pulses decreased but intact. There is 2 to 3+ pitting edema bilaterally to the knee. No clubbing or cyanosis. Neurologic: Cranial nerves grossly intact. No focal deficits identified. Psychiatric: Normal mood and affect. Awake, alert, oriented x3. Skin: No new rashes or lesions identified. ASSESSMENT AND PLAN: 1. Acute on chronic systolic congestive heart failure: Last known ejection fraction 11%. Patient admitted with mild edema and bilateral pleural effusions. Dyspnea now essentially resolved with aggressive diuresis. Pleural effusion appears to be somewhat improved. BNP significantly better than on admission. Cardiology wants to continue aggressive diuresis for one more day. Likely discharge tomorrow. They have no plans for a left heart catheterization at this time. They do recommend outpatient evaluation for automatic implantable cardioverter defibrillator placement. 2. Dilated cardiomyopathy with ejection fraction as above. Last stress test 2017 with some suggestion of a chronic ischemic component. Cardiology following. 3. History of alcohol abuse. The patient has cut back recently. He has been counseled on cessation. 4. Hypertension, well controlled on current regimen. 5. Chronic obstructive pulmonary disease. Does not appear to be in exacerbation at this time. DuoNebs as needed. [facility]
--- NOTE | 2018-07-14 15:47 | ECHO REPORT ---
ORDER DATE: 07/12/2018 INTERPRETING PHYSICIAN: Ben Terrazas MD ECHOCARDIOGRAPHIC MEASUREMENTS: Interventricular septum 1.0 cm. Left ventricular posterior wall 0.9 cm. Diastolic diameter 6.7 cm. Left atrium 4.6 cm. Aorta 3.3 cm. SUMMARY OF THE 2-DIMENSIONAL IMAGING: Left ventricle was dilated with severely reduced systolic function. Estimated ejection fraction of 55%. There is severe restrictive physiology suggestive of diastolic dysfunction. Aortic valve leaflets are trileaflet. Mitral valve was normal. Tricuspid valve was normal. Pulmonic valve was normal. There is no aortic stenosis. There is trivial aortic regurgitation. There is mild mitral regurgitation. There is moderate tricuspid regurgitation. Peak velocity across the tricuspid valve was 2.5 m/sec. Pulmonary artery systolic pressure of 35 to 40 mmHg. There is no pericardial effusion or obvious intracardiac mass or thrombus seen. cc: MD Perez Marin MD
--- NOTE | 2018-07-14 17:32 | PROGRESS NOTE ---
DATE: 07/14/2018 SUBJECTIVE: The patient continues without shortness of breath or chest discomfort. He is currently on nasal cannula oxygen. OBJECTIVE: Vital Signs: Blood pressure 118/94, heart rate 80, oxygen saturation 98% on nasal cannula oxygen at 3 L/minute. Neck: Jugular venous distention is evident consistent with elevated central venous pressure. Chest: Clear to auscultation. Cardiac: Regular rate and rhythm without appreciable murmur or gallop. Extremities: Demonstrate trace ankle edema. LABORATORY DATA: Includes a sodium of 140, potassium 3.8, chloride 100, carbon dioxide 29, BUN 14 creatinine 0.9. Glucose 115, pro B-natriuretic peptide level 4399. IMPRESSION: 1. Vyvpo-[id number] systolic heart failure. 2. Severe nonischemic cardiomyopathy. 3. Hypertensive cardiovascular disease. RECOMMENDATIONS: 1. Continue diuresis further with IV Lasix. 2. Gently increase losartan as tolerated. 3. Anticipate the patient likely will be improved sufficient enough tomorrow to be able to go home. 4. Ultimately the patient needs referral for electrophysiology/arrhythmia consultation for consideration of implantable defibrillator. 5. The patient again is advised that he is disabled from a cardiovascular standpoint due to severe cardiomyopathy. cc: Perez Mckenna MD
[2018-07-14] MEDS: LOVENOX SUBQ SCH (20:36)
[2018-07-15] MEDS: LASIX IV SCH (00:37)
[2018-07-15] MEDS ORDERED: BLISTEX MEDICATED BERRY LIP BALM TOP PRN (02:48)
[2018-07-15 07:10] VITALS: BP 125/99
[2018-07-15] MEDS: DUONEB (A & A) INH SCH (08:01)
[2018-07-15] MEDS: COREG PO SCH (08:57)
[2018-07-15] MEDS: KLOR-CON PO SCH (08:57)
[2018-07-15] MEDS: ASPIRIN PO SCH (08:57)
[2018-07-15] MEDS ORDERED: COZAAR PO SCH (09:00)
--- NOTE | 2018-07-16 01:37 | DISCHARGE SUMMARY ---
ADMISSION DATE: 07/11/2018 DISCHARGE DATE: 07/15/2018 CONSULTATIONS: Dr. Perez Mckenna with Cardiology. PERTINENT PROCEDURES: 1. Chest x-ray, cardiomegaly with increase in the size of the right pleural effusion, but no pulmonary edema. 2. Echocardiogram, ejection fraction of 55%. There is suggestion of diastolic dysfunction. DISCHARGE DIAGNOSES: 1. [id number] systolic congestive heart failure. The patient was aggressively diuresed for several days. He has also tolerated his increase in losartan, and will be discharged home to follow up with Cardiology as an outpatient. 2. Severe nonischemic cardiomyopathy. Cardiology anticipates that the patient will need a referral to Electrophysiology for arrhythmia consultation for consideration for implantable defibrillator, 3. Hypertensive cardiovascular disease. Will continue on per oral medications. 4. History of alcohol abuse. The patient has recently cut back, he has been counseled on abstinence. 5. Chronic obstructive pulmonary disease without exacerbation. HOSPITAL COURSE: Briefly, Mr. Schwartz is a 38-year-old male with a longstanding history of chronic systolic heart failure with an EF of around 10%-15%, who came to the ED complaining of 3-week history of leg swelling, 2-week history of abdominal swelling, and 1 week of progressive dyspnea on exertion with orthopnea and a nonproductive cough. He was found to have [id number] systolic congestive heart failure as well as severe dilated nonischemic cardiomyopathy for which he has had multiple admissions in the past 6 months for recurrent congestive heart failure. He was aggressively diuresed with IV Lasix, increase in his losartan. He was diuresed to a euvolemic state, and we will get a referral to Electrophysiology as an outpatient for consideration of an implantable defibrillator. DISCHARGE VITAL SIGNS: At time of discharge, temperature is 98.3 degrees, heart rate 81, respirations 18, blood pressure 125/99, O2 is 96% on room air. DISCHARGE DIET: Healthy heart. DISCHARGE MEDICATIONS: 1. Coreg 6.25 mg p.o. q.12 hours. 2. Aspirin 81 mg p.o. daily. 3. Lasix 80 mg p.o. b.i.d. 4. Cozaar 50 mg p.o. daily. 5. Micro-K 10 mEq p.o. b.i.d. 6. Crestor 20 mg p.o. daily. FOLLOW-UP: Mr. Schwartz is being discharged home with self-care. He is to follow up with Cardiology on an outpatient basis as well as Electrophysiology for consideration of implantable defibrillator. He has been educated on alcohol cessation. He can return to the ED or call 911 for any worsening of symptoms. Dictated by YESSICA Morin for Chance Best MD Addendum: Patient seen and examined by myself. Agree with YESSICA note. It reflects my assessment and plan. Patient is being discharged from hospital in stable condition. He reports feeling fine. Will be seen by [employer] in the office to arrange EP consult for defibrillator. He was highly encouraged to be compliant taking his meds. cc: MD Perez Jaime MD MTDD
== END 2018-07-15 09:10 | disposition home or self-care (01) | DRG 291 ==
LOC: ED 18:00 → SUATTDRO 22:36 → 3S 22:36
PROVIDERS: ATTEND Internal Medicine
CPT/HCPCS: 71020; 71046; 80048; 80053; 80069; 81001; 83880; 84443; 84484; 85025; 87040; 87275; 87276; 87804; 93005; 93306; 94640; 94761; 96374; 99285; A9270; J1650; J1940

== ENCOUNTER 2018-07-16 08:37 | Inpatient (IN) ==
[2018-07-16] MEDS ORDERED: ASPIRIN PO ONE (08:54)
[2018-07-16] MEDS ORDERED: ASPIRIN PR ONE (08:54)
--- NOTE | 2018-07-16 09:22 | Diag Imaging Result Doc PS360 ---
EXAM: CHEST-2 VIEWS HISTORY: SOB TECHNIQUE: Chest two views 07/13/2018 COMPARISON: None. FINDINGS: There is a moderate sized right-sided pleural effusion which remains. This is unchanged. There is basilar atelectasis and there could even be underlying infiltrates. The heart remains enlarged. No pulmonary edema. No left pleural effusion. IMPRESSION: No interval improvement. Electronically signed by Everardo Alvarez 07/16/2018 9:19 AM
[2018-07-16 09:34] LABS: INR 1.27; PROTIME 16.9 Seconds (11.0-16.0)
[2018-07-16 09:35] LABS: PTT 31.5 Seconds (22.3-41.8)
[2018-07-16 09:42] LABS: BASO# 0.04 X1000 (0.0-0.2); BASO% 0.5 % (0.0-0.8); EOS# 0.17 X1000 (0.0-0.7); EOS% 2.1 % (0.0-10.0); HEMATOCRIT 42.9 % (42.0-52.0); HEMOGLOBIN 14.8 g/dL (14.0-18.0); LYMPH# 2.33 X1000 (1.2-3.4); LYMPH% 28.3 % (20.5-51.1); MCH 27.4 PG (27-31); MCHC 34.5 g/dL (33-37); MCV 79.4 FL (81-99); MONO# 0.98 X1000 (0.11-0.59); MONO% 11.9 % (1.7-9.3); MPV 10.7 FL (7.4-10.4); NEUT% 57.2 % (42.2-75.2); PLT 343 X1000 (130-400); RDW 19.4 % (11.5-14.5); WBC 8.22 X1000 (4.8-10.8)
[2018-07-16 09:58] LABS: AGAP 14; ALB/GLOB RATIO 1.4; ALBUMIN 3.8 g/dL (3.5-5.0); ALKALINE PHOSPHATASE 154 U/L (32-122); BUN 13 mg/dL (8-22); CALCIUM 9.5 mg/dL (8.8-10.2); CHLORIDE 96 mmol/L (98-107); CK PROFILE 167 U/L (24-204); COSMO 272; CREATININE 0.9 mg/dL (0.7-1.2); ESTIMATED GFR > 60; GLUCOSE 98 mg/dL (70-104); GOT 27 U/L (10-34); GPT 18 U/L (10-44); POTASSIUM 3.9 mmol/L (3.5-5.1); SODIUM 136 mmol/L (136-145); TCO2 26 mmol/L (25-35); TOTAL BILIRUBIN 2.25 mg/dL (0.20-1.00); TOTAL PROTEIN 6.6 g/dL (6.3-8.3)
--- NOTE | 2018-07-16 10:07 | EKG Report ---
Test Performed on : 07/16/2018 08:49:38 AM Test Reason : SOB Blood Pressure : / mmHG Vent. Rate : 086 BPM Atrial Rate : 086 BPM P-R Int : 148 ms QRS Dur : 098 ms QT Int : 372 ms P-R-T Axes : -02 221 023 degrees QTc Int : 445 ms Normal sinus rhythm. Right superior axis deviation Low voltage QRS Inferior infarct , age undetermined Cannot rule out Anterior infarct (cited on or before 25-NOV-2017) ST & T wave abnormality, consider lateral ischemia Abnormal ECG When compared with ECG of 26-APR-2018 12:17, QRS axis shifted left Inferior infarct is now present Unconfirmed Result
[2018-07-16 10:56] LABS: ALLEN TEST NO; BE 2.9 mmoll (-3.0-3.0); BLOOD TYPE ARTERIAL; HCO3-(ACT) 26.9 mmoll (20.0-26.0); O2(CT) 18.5 mL/dL (15.0-23.0); PCO2(98.6) 35 mmHg (35-45); PO2(98.6) 57 mmHg (60-100); SAMPLE BLOOD; THB 15.2 g/dL (11.5-17.4); pH(98.6) 7.48 (7.35-7.45)
[2018-07-16 10:57] LABS: MODALITY ROOM AIR
[2018-07-16] MEDS ORDERED: NITROGLYCERIN TOP ONE (13:17)
[2018-07-16 13:27] LABS: URINE SOURCE CLEAN CATCH
[2018-07-16 13:34] LABS: BILIRUBIN URINE SMALL (NEGATIVE); BLOOD URINE SMALL (NEGATIVE); COLOR YELLOW; GLUCOSE URINE NEGATIVE (NEGATIVE); KETONE URINE NEGATIVE (NEGATIVE); LEUKOCYTES URINE NEGATIVE (NEGATIVE); NITRITE URINE NEGATIVE (NEGATIVE); PROTEIN URINE 600 mg/dL (NEGATIVE); SP GRAVITY URINE 1.015; TURBIDITY URINE CLEAR (CLEAR); UROBILINOGEN URINE 4 mg/dL (NORMAL)
[2018-07-16 13:37] LABS: UR EPITHELIAL CELLS <10 /HPF (<10); URINE BACTERIA NEGATIVE /HPF; URINE RBC <10 /HPF (<10); URINE WBC <10 /HPF (<10)
[2018-07-16] MEDS ORDERED: COREG PO ONE (13:38)
[2018-07-16] MEDS ORDERED: COZAAR PO ONE (13:38)
[2018-07-16] MEDS ORDERED: LASIX IV ONE (13:39)
--- NOTE | 2018-07-16 15:03 | Diag Imaging Result Doc PS360 ---
EXAM: CT THORAX W/CONTRAST 07/16/2018 HISTORY: ASSESS PLEURAL EFFUSION TECHNIQUE: This exam was performed using automated exposure control, adjustment of mA or kV according to patient size, and/or use of iterative reconstruction technique. COMMENT: The current examination is compared with the previous study of 01/31/2018. The right pleural effusion is slightly larger than it was previously. The right lower lobe is more atelectatic than it was. There is ascites as there was previously. There is cardiomegaly. There has been some diminishment in the size of some of the mediastinal nodes most notably in the aorticopulmonary window node visible on image 40. This presumably mostly measured 2.5 cm in long axis and currently is 2 cm. There are some scattered emphysematous changes particularly in the right apex. There are calcifications in the right lower lobe and there are increased interstitial opacities in the left lower lobe. This is worse than on the previous study. IMPRESSION: Worsened right pleural effusion and lower lobe atelectasis. Pulmonary edema. Improved mediastinal adenopathy. Electronically signed by Darrin Paulino 07/16/2018 3:01 PM
[2018-07-16] MEDS ORDERED: ZOFRAN IV PRN (16:28)
--- NOTE | 2018-07-16 16:35 | PROVIDER DOCUMENTATION ---
This chart was entered by Violet Irwin Scribe, acting as scribe for Klever Melendez MD. HPI-Respiratory General - General Chief Complaint: Shortness of Breath Stated Complaint: SOB, COUGHING Time Seen by Provider: 07/16/18 10:33 Source: patient Allergies/Adverse Reactions: Patient Allergies Allergy/AdvReac Type Severity Reaction Status Date / Time No Known Allergies Allergy Verified 07/16/18 10:52 Home Medications: Home Medication List Medication Instructions Recorded Confirmed Last Taken Type ROSUVAstatin [Crestor] 20 mg PO DAILY #120 tab 11/29/17 07/16/18 07/15/18 20:00 Rx Aspirin 81 mg PO DAILY chewtab 01/14/18 07/16/18 07/15/18 20:00 Rx Potassium Chloride E.r. [Micro-K] 10 meq PO BID #60 cap 01/14/18 07/16/18 20:00 Rx Carvedilol [Coreg] 6.25 mg PO Q12HR #60 tab 07/15/18 07/16/18 07/15/18 20:00 Rx Furosemide [Lasix] 80 mg PO BID #60 tab 07/15/18 07/16/18 07/15/18 20:00 Rx Losartan [Cozaar] 50 mg PO DAILY #90 tab 07/15/18 07/16/18 Unknown Rx - History of Present Illness-Resp Nature of Presenting Problem: Patient is a 38 year old male who presents to the ED with shortness of breath and cough. Patient states symptoms started last night. Patient states being discharged from the hospital yesterday morning around 0900. Patient does not report chest pain. Quality of Pain: reports: tightness Severity in ED: reports: mild Onset/Duration: reports: last night Timing: reports: still present Cough Quality/Degree: reports: moderate Episode Frequency: frequent episodes Current Respiratory Medication Therapy: Initiated see nurses note Modifying Factors: improves with: exertion (worse) Associated Symptoms: reports: cough, shortness of breath Similar Symptoms Previously?: Yes Recently seen or treated by another doctor?: Yes Review of Systems - Adult - REVIEW OF SYSTEMS - ADULT Constitutional: reports: no symptoms reported. denies: chills, fever Eyes: reports: no symptoms reported Ears, Nose, Mouth & Throat: reports: no symptoms reported Cardiovascular: reports: no symptoms reported Respiratory: reports: cough, shortness of breath. denies: wheezing Gastrointestinal: reports: no symptoms reported Genitourinary: reports: no symptoms reported Musculoskeletal: reports: no symptoms reported Integumentary: reports: no symptoms reported Neurological: reports: no symptoms reported Psychiatric: reports: no symptoms reported Endocrine: reports: no symptoms reported Hematologic/Lymphatic: reports: no symptoms reported Allergic/Immunologic: reports: no symptoms reported All Other Systems: Reviewed and Negative Past History - Adult - PAST MEDICAL HISTORY-ADULT Review of Records: reports: Nursing Assessment Review, Medications Reviewed, Social history reviewed & non-contributory. Major Childhood Illnesses: reports: denies history Cardiovascular: reports: CHF, HTN (non-compliant with meds), hyperlipidemia Respiratory: reports: asthma Gastrointestinal: reports: GERD Obstetrical/Gynecological: reports: denies history Genitourinary: reports: denies history Musculoskeletal: reports: denies history Neurological: reports: CVA Psychiatric: reports: denies history Endocrine/Immune: reports: denies history Other Conditions: reports: denies history - PRIOR SURGERIES/PROCEDURES Surgical/Procedure History: reports: reviewed, not pertinent, other (ear sx) - IMMUNIZATION STATUS Childhood Immunizations: See Nurse Assessment Flu Vaccine: See Nurse Assessment - FAMILY HISTORY Family History: CAD over 55 yo - SOCIAL HISTORY Smoking: cigarettes (former) Substance Use: alcohol Alcohol Use Frequency: occasionally Physical Exam-General - PHYSICAL EXAM-ADULT Initial Vital Signs Reviewed: Yes - CONSTITUTIONAL General Appearance: alert, no apparent distress - HEAD, EARS, NOSE, MOUTH & THROAT HENMT: normal ENT inspection - NECK Neck: normal inspection - RESPIRATORY Respiratory: chest non-tender, decreased breath sounds (right base) - CARDIOVASCULAR Cardiovascular: normal peripheral pulses, regular rate, rhythm - GASTROINTESTINAL (ABDOMEN) Abdominal Exam: normal bowel sounds, non tender, soft - MUSCULOSKELETAL Extremity: non-tender, other (1/4 edema to bilateral ankles) - SKIN Integumentary: normal color, normal turgor, warm/dry - NEUROLOGIC Neurologic: grossly normal - PSYCHIATRIC Psych/Mental Status: normal mood/affect, oriented x 3 Progress - PLAN OF CARE/RESULTS Progress/Plan/Lab Results: Vital Signs - 8 hr 07/16/18 08:53 07/16/18 10:28 07/16/18 10:41 Temperature 97.4 F L Pulse Rate 91 H 85 87 Respiratory Rate 20 18 28 H Blood Pressure 123/93 131/110 131/110 O2 Sat by Pulse Oximetry 97 97 92 L 07/16/18 10:42 07/16/18 11:00 07/16/18 11:53 Temperature Pulse Rate 84 89 90 Respiratory Rate 20 24 25 H Blood Pressure 133/110 140/103 O2 Sat by Pulse Oximetry 97 96 88 L 07/16/18 12:21 07/16/18 13:02 07/16/18 14:02 Temperature Pulse Rate 96 H 82 93 H Respiratory Rate 20 20 23 Blood Pressure 148/106 144/114 138/102 O2 Sat by Pulse Oximetry 92 L 93 L 95 07/16/18 15:02 Temperature Pulse Rate 91 H Respiratory Rate Blood Pressure 143/99 O2 Sat by Pulse Oximetry 96 07/16/18 10:30 Influenza Screen - Final Nasopharyngeal Laboratory Results - last 24 hr 07/16/18 07/16/18 07/16/18 08:56 08:56 08:56 WBC 8.22 RBC 5.40 Hgb 14.8 Hct 42.9 MCV 79.4 L MCH 27.4 MCHC 34.5 RDW Std Deviation 19.4 H Plt Count 343 MPV 10.7 H Immature Gran % (Auto) 0.0 Neut % (Auto) 57.2 Lymph % (Auto) 28.3 Gaines % (Auto) 11.9 H Eos % (Auto) 2.1 Baso % (Auto) 0.5 Immature Gran # (Auto) 0.00 Neut # (Auto) 4.70 Lymph # (Auto) 2.33 Gaines # (Auto) 0.98 H Eos # (Auto) 0.17 Baso # (Auto) 0.04 PT INR PTT (Actin FS) Specimen Type Sample Site pH pCO2 pO2 HCO3 Base Excess Oxyhemoglobin ABG O2 Sat (Calculated) ABG O2 Saturation ABG Carboxyhemoglobin ABG Methemoglobin Ryan Test A-a O2 Difference Total Hemoglobin Lactate Liter Flow Blood Gas Modality FiO2 % Sodium 136 Potassium 3.9 Chloride 96 L Carbon Dioxide 26 Anion Gap 14 BUN 13 Creatinine 0.9 Estimated GFR/1.73 m2 > 60 BUN/Creatinine Ratio 14 Glucose 98 Calculated Osmolality 272 Calcium 9.5 Magnesium Total Bilirubin 2.25 H AST 27 ALT 18 Alkaline Phosphatase 154 H Creatine Kinase 167 Troponin T Kjv-T-Vdcpboxlepl Pept 7416 H Total Protein 6.6 Albumin 3.8 Globulin 2.8 Albumin/Globulin Ratio 1.4 Plasma Lactate Urine Source Urine Color Urine Turbidity Urine pH Ur Specific [place] Urine Protein Ur Glucose (Stick) Ur Ketones (Stick) Urine Blood Urine Nitrite Urine Bilirubin Urobilinogen Dipstick Urine Leukocytes Urine WBC (Auto) Urine RBC (Auto) U Epithel Cells (Auto) Urine Bacteria (Auto) 07/16/18 07/16/18 07/16/18 08:56 08:56 08:56 WBC RBC Hgb Hct MCV MCH MCHC RDW Std Deviation Plt Count MPV Immature Gran % (Auto) Neut % (Auto) Lymph % (Auto) Gaines % (Auto) Eos % (Auto) Baso % (Auto) Immature Gran # (Auto) Neut # (Auto) Lymph # (Auto) Gaines # (Auto) Eos # (Auto) Baso # (Auto) PT 16.9 H INR 1.27 PTT (Actin FS) 31.5 Specimen Type Sample Site pH pCO2 pO2 HCO3 Base Excess Oxyhemoglobin ABG O2 Sat (Calculated) ABG O2 Saturation ABG Carboxyhemoglobin ABG Methemoglobin Ryan Test A-a O2 Difference Total Hemoglobin Lactate Liter Flow Blood Gas Modality FiO2 % Sodium Potassium Chloride Carbon Dioxide Anion Gap BUN Creatinine Estimated GFR/1.73 m2 BUN/Creatinine Ratio Glucose Calculated Osmolality Calcium Magnesium 2.1 Total Bilirubin AST ALT Alkaline Phosphatase Creatine Kinase Troponin T < 0.010 Nlw-N-Uzttthincqp Pept Total Protein Albumin Globulin Albumin/Globulin Ratio Plasma Lactate Urine Source Urine Color Urine Turbidity Urine pH Ur Specific [place] Urine Protein Ur Glucose (Stick) Ur Ketones (Stick) Urine Blood Urine Nitrite Urine Bilirubin Urobilinogen Dipstick Urine Leukocytes Urine WBC (Auto) Urine RBC (Auto) U Epithel Cells (Auto) Urine Bacteria (Auto) 07/16/18 07/16/18 07/16/18 08:56 10:40 10:50 WBC RBC Hgb Hct MCV MCH MCHC RDW Std Deviation Plt Count MPV Immature Gran % (Auto) Neut % (Auto) Lymph % (Auto) Gaines % (Auto) Eos % (Auto) Baso % (Auto) Immature Gran # (Auto) Neut # (Auto) Lymph # (Auto) Gaines # (Auto) Eos # (Auto) Baso # (Auto) PT INR PTT (Actin FS) Specimen Type ARTERIAL Sample Site R BRACHIAL pH 7.48 H pCO2 35 pO2 57 L HCO3 26.9 H Base Excess 2.9 Oxyhemoglobin 86.9 L* ABG O2 Sat (Calculated) 18.5 ABG O2 Saturation 90.0 L ABG Carboxyhemoglobin 2.40 ABG Methemoglobin 1.0 Ryan Test NO A-a O2 Difference 49.0 Total Hemoglobin 15.2 Lactate 1.40 Liter Flow 0.0 Blood Gas Modality ROOM AIR FiO2 % 21.0 Sodium Potassium Chloride Carbon Dioxide Anion Gap BUN Creatinine Estimated GFR/1.73 m2 BUN/Creatinine Ratio Glucose Calculated Osmolality Calcium Magnesium Total Bilirubin AST ALT Alkaline Phosphatase Creatine Kinase Troponin T Svz-M-Yckotlnyihb Pept 7348 H Total Protein Albumin Globulin Albumin/Globulin Ratio Plasma Lactate 1.8 Urine Source Urine Color Urine Turbidity Urine pH Ur Specific [place] Urine Protein Ur Glucose (Stick) Ur Ketones (Stick) Urine Blood Urine Nitrite Urine Bilirubin Urobilinogen Dipstick Urine Leukocytes Urine WBC (Auto) Urine RBC (Auto) U Epithel Cells (Auto) Urine Bacteria (Auto) 07/16/18 13:15 WBC RBC Hgb Hct MCV MCH MCHC RDW Std Deviation Plt Count MPV Immature Gran % (Auto) Neut % (Auto) Lymph % (Auto) Gaines % (Auto) Eos % (Auto) Baso % (Auto) Immature Gran # (Auto) Neut # (Auto) Lymph # (Auto) Gaines # (Auto) Eos # (Auto) Baso # (Auto) PT INR PTT (Actin FS) Specimen Type Sample Site pH pCO2 pO2 HCO3 Base Excess Oxyhemoglobin ABG O2 Sat (Calculated) ABG O2 Saturation ABG Carboxyhemoglobin ABG Methemoglobin Ryan Test A-a O2 Difference Total Hemoglobin Lactate Liter Flow Blood Gas Modality FiO2 % Sodium Potassium Chloride Carbon Dioxide Anion Gap BUN Creatinine Estimated GFR/1.73 m2 BUN/Creatinine Ratio Glucose Calculated Osmolality Calcium Magnesium Total Bilirubin AST ALT Alkaline Phosphatase Creatine Kinase Troponin T Kbu-Y-Oilrfrjbdrs Pept Total Protein Albumin Globulin Albumin/Globulin Ratio Plasma Lactate Urine Source CLEAN CATCH Urine Color YELLOW Urine Turbidity CLEAR Urine pH 6.0 Ur Specific [place] 1.015 Urine Protein 600 A Ur Glucose (Stick) NEGATIVE Ur Ketones (Stick) NEGATIVE Urine Blood SMALL A Urine Nitrite NEGATIVE Urine Bilirubin SMALL A Urobilinogen Dipstick 4 A Urine Leukocytes NEGATIVE Urine WBC (Auto) <10 Urine RBC (Auto) <10 U Epithel Cells (Auto) <10 Urine Bacteria (Auto) NEGATIVE Orders Category Date Time Status Admit - [facility] Routine AdmDCTranf 07/16/18 16:28 Active Activity - Up with Assistance ORDERED Care 07/16/18 16:28 Active Cardiac Monitoring DIRECTED Care 07/16/18 08:55 Completed DVT/PE Risk Assess/Protocol [QM] ORDERED Care 07/16/18 16:28 Active Intake and Output-Strict ORDERED Care 07/16/18 16:28 Active Nursing- Assist w/ IS as order ORDERED Care 07/16/18 16:28 Active Oxygen Therapy- ED Nursing DIRECTED Care 07/16/18 08:55 Completed Saline Loc NOW Care 07/16/18 08:55 Completed Saline Loc NOW Care 07/16/18 10:14 Completed Vital Signs Order Q 8-HR ASSESS Care 07/16/18 16:28 Active Z-Document. for Tele Applied ORDERED Care 07/16/18 16:28 Active Palliative Care Consult [OM.CSS] Routine Cons 07/16/18 15:25 Active Social Service Consult Routine Cons 07/16/18 16:28 Active Heart Healthy Diet Diet 07/16/18 13:23 Active NPO Diet 07/17/18 00:01 Active CHEST-2 VIEWS [RAD] Stat Exams 07/16/18 08:[address] THORAX W/CONTRAST [CT] Stat Exams 07/16/18 14:06 Completed ABG [RESP] Routine Lab 07/16/18 10:50 Completed CBC WITH DIFF [HEME] Routine Lab 07/17/18 06:00 Ordered CBC WITH ELECTRONIC DIFF [HEME] Stat Lab 07/16/18 08:56 Completed CK PROFILE [SP CHEM] Stat Lab 07/16/18 08:56 Completed COMPREHENSIVE METABOLIC PANEL [CHEM] Routine Lab 07/17/18 06:00 Ordered COMPREHENSIVE METABOLIC PANEL [CHEM] Stat Lab 07/16/18 08:56 Completed INFLUENZA SCREEN A/B Stat Lab 07/16/18 10:30 Completed LACTATE, PLASMA [CHEM] Stat Lab 07/16/18 10:40 Completed MAGNESIUM [CHEM] Routine Lab 07/17/18 06:00 Ordered MAGNESIUM [CHEM] Stat Lab 07/16/18 08:56 Completed PRO B-NATRIURETIC PEPTIDE Stat Lab 07/16/18 08:56 Completed PRO B-NATRIURETIC PEPTIDE Stat Lab 07/16/18 08:56 Completed PROTIME WITH INR [COAG] Stat Lab 07/16/18 08:56 Completed PTT [COAG] Stat Lab 07/16/18 08:56 Completed TROPONIN T Stat Lab 07/16/18 08:56 Completed URINALYSIS W/POSS RFLX CULT [URINALYSIS] Stat Lab 07/16/18 13:15 Completed Aspirin Med 07/16/18 08:54 Discontinued 300 mg AR NOW ONE Aspirin Med 07/16/18 08:54 Discontinued 325 mg PO NOW ONE Carvedilol [Coreg] Med 07/16/18 13:38 Discontinued 6.25 mg PO NOW ONE Carvedilol [Coreg] Med 07/16/18 21:00 Active 6.25 mg PO Q12H Furosemide [Lasix] Med 07/16/18 13:39 Discontinued 40 mg IV NOW ONE Furosemide [Lasix] Med 07/16/18 18:00 Active 40 mg IV Q12H Losartan [Cozaar] Med 07/17/18 09:00 Active 50 mg PO DAILY Losartan [Cozaar] Med 07/16/18 13:38 Discontinued 50 mg PO NOW ONE Nitroglycerin Med 07/16/18 13:17 Discontinued 1 inch TOP NOW ONE Ondansetron [Zofran] Med 07/16/18 16:28 Active 4 mg IV Q4H PRN PRN Potassium Chloride E.r. [Micro-K] Med 07/16/18 21:00 Active 10 meq PO BID ROSUVAstatin [Crestor] Med 07/17/18 09:00 Active 20 mg PO DAILY Incentive Spirometer Routine Oth 07/16/18 16:28 Active Oxygen Device Routine Oth 07/16/18 16:28 Active Telemetry [OM.EQ] Routine Oth 07/16/18 16:28 Active EKG [EKG] Stat Ther 07/16/18 08:55 Draft EKG [EKG] Stat Ther 07/16/18 10:14 Ordered Transfer/Admit Order [TRANSFER] Routine Transfer 07/16/18 15:12 Completed Result Diagrams: 07/16/18 08:56 07/16/18 08:56 - REASSESSMENT Reassessment #1 Time Reassessed: 13:52 Status: other (YESSICA Huang for Hospitalist, consulted with alvin Rasmussen, about patient. Reina states patient has home O2 so he does not meet admission criteria. Valery consulted with STACEY Nava, about seeing if patient has home O2. Brandy stated patient denies having home O2.) Reassessment #2 Time Reassessed: 15:17 Status: unchanged (NOT CT CHEST.: ADMIT) - EKG 1 Time of EKG reading by physician:: 08:49 EKG Read and Signed by:: Klever Melendez EKG Interpretation (*Must complete 3 of following elements*): Abnormal (cannot rule out anterior infarct, age undetermined; ST & T wave abnormality, consider lateral ischemia) Rate: 86 Rhythm: normal sinus rhythm [place]: right (superior) Comments: low voltage QRS; inferior infarct, age undetermined; - XRAY 1 XRAY Study: Chest Impression: See EMR Report (EXAM: CHEST-2 VIEWS HISTORY: SOB TECHNIQUE: Chest two views 07/13/2018 COMPARISON: None. FINDINGS: There is a moderate sized right-sided pleural effusion which remains. This is unchanged. There is basilar atelectasis and there could even be underlying infiltrates. The heart remains enlarged. No pulmonary edema. No left pleural effusion. IMPRESSION: No interval improvement. Electronically signed by Everardo Alvarez 07/16/2018 9: 19 AM 07/16/18918 Interpreting Physician: Everardo Alvarez MD Dictated Date/Time: 07/16/18918 cc: Klever Melendez MD; Lamberto Conteh Jr, MD) - CT/MRI 1 CT Study: Thorax Impression: See EMR Report (EXAM: CT THORAX W/CONTRAST 07/16/2018 HISTORY: ASSESS PLEURAL EFFUSION TECHNIQUE: This exam was performed using automated exposure control, adjustment of mA or kV according to patient size, and/or use of iterative reconstruction technique. COMMENT: The current examination is compared with the previous study of 01/31/2018. The right pleural effusion is slightly larger than it was previously. The right lower lobe is more atelectatic than it was. There is ascites as there was previously. There is cardiomegaly. There has been some diminishment in the size of some of the mediastinal nodes most notably in the aorticopulmonary window node visible on image 40. This presumably mostly measured 2.5 cm in long axis and currently is 2 cm. There are some scattered emphysematous changes particularly in the right apex. There are calcifications in the right lower lobe and there are increased interstitial opacities in the left lower lobe. This is worse than on the previous study. IMPRESSION: Worsened right pleural effusion and lower lobe atelectasis. Pulmonary edema. Improved mediastinal adenopathy. Electronically signed by Darrin Paulino 07/16/2018 3:01 PM 07/16/18 1501 Interpreting Physician: Darrin Paulino MD Dictated Date/Time: 07/16/18 2679 cc: Klever Melendez MD; Lamberto Conteh Jr, MD) - CONSULTS/PCP/HOSPITALIST Notification #1 *Consult/PCP/Hospitalist*: YESSICA Huang for Hospitalist Time Discussed: 13:43 (Dr. Hogan accepted admit) Reason/Comments: Dr. Melendez consulted with Reina about patient Consult Disposition: Will see in ED, Admit #2 Consult: Dr. Hogan Time Discussed: 13:59 Reason/Comments: Dr. Melendez consulted with Dr. Hogan about patient. Consult Disposition: other (Dr. Hogan stated patient was cleared by Dr. Mckenna prior to discharge home. Dr. Hogan states order the patient a thorax CT to eval pleural effusion then call back with CT results.) #3 Consult: YESSICA Huang for Hospitalist Time Discussed: 15:15 Reason/Comments: Dr. Melendez consulted with Reina about patient. Consult Disposition: Admit (Reina states patient will be admitted to Dr. Hogan.) Departure - Departure Date of Disposition Decision: 07/16/18 Time of Disposition Decision: 13:43 DIAGNOSIS: Dyspnea on minimal exertion, Pleural effusion due to CHF (congestive heart failure), CHF (congestive heart failure), Ascites Disposition: ADMITTED INPATIENT 09 Certified Medical Emergency: Emergent Condition: Fair - Critical Care Note This patient required my direct & personal management of CC.: Yes Total Time (mins): 45 Critical Care Statement: This patient required my direct personal management to treat or rule out processes, the absence of which, could potentiallly result in sudden, clinically significant life or limb threatening deterioration. Attestation - Physician/ ANTONINA Attestation The physician spent face to face time with patient:: Yes Advanced Practice Provider documentation review:: Supervising physician onsite and consulted in the evaluation and care of this patient. The physician did have a face to face encounter with the patient. This chart was documented by the indicated scribe, (Violet Iwrin Scribe) and accurately reflects the services I performed and decisions made by me, Klever Melendez MD, as attested by the provider's signature.
[2018-07-16] MEDS: LASIX IV SCH (18:00)
[2018-07-16] MEDS ORDERED: NORCO-5 PO PRN (18:09)
--- NOTE | 2018-07-16 18:35 | HISTORY AND PHYSICAL ---
PRIMARY CARE PROVIDER: Dr. Sebastien Conteh. CHIEF COMPLAINT: Shortness of breath that started yesterday after he left the hospital. HISTORY OF PRESENT ILLNESS: Mr. Schwartz is a 38-year-old male, who was just recently discharged from our service yesterday on 07/15/2018 for acute-on- chronic systolic heart failure. He was aggressively diuresed for several days, and medication changes with Cardiology. They wanted him to follow up with electrophysiology secondary to his severe nonischemic cardiomyopathy for consideration for implantable defibrillator. His last EF on July 12 showed an EF of 55%. He was discharged home with Coreg, aspirin, Lasix, Cozaar , potassium, and Crestor. He states he got his prescriptions filled, and has taken his medications as they were prescribed. However, when we looked back under his medication history, he does not have any medications filled, except for in April [address] Pisano, which was spironolactone. He does complain of some abdominal fullness. There is no chest pain. No fever. No chills. He has had some associated cough that is nonproductive. PAST MEDICAL HISTORY: 1. Grsvo-wl-upunoob systolic congestive heart failure. 2. Severe nonischemic cardiomyopathy. 3. Hypertensive cardiovascular disease. 4. History of alcohol abuse. 5. Chronic obstructive pulmonary disease. PAST SURGICAL HISTORY: Right ear surgery. FAMILY HISTORY: Notable for heart disease and diabetes. SOCIAL HISTORY: He smokes a few cigarettes a day. He no longer engages in cocaine and marijuana use since last year, and he has recently cut back on his alcohol use. ALLERGIES: No known drug allergies. HOME MEDICATIONS: 1. Coreg 6.25 mg p.o. q.12 hours. 2. Aspirin 81 mg p.o. daily. 3. Lasix 80 mg p.o. b.i.d. 4. Cozaar 50 mg p.o. daily. 5. Micro-K 10 mEq p.o. b.i.d. 6. Crestor 20 mg p.o. daily. PHYSICAL EXAMINATION: VITAL SIGNS: Temperature is 97.4 degrees, heart rate 85, respirations 18, blood pressure 131/110, oxygen is 97% on room air. However, upon assessment, he was 92% on room air. GENERAL: Mr. Schwartz is a 38-year-old male, who is sitting up on the stretcher, in no acute distress. He is somewhat agitated and frustrated with the whole medical situation. HEENT: Atraumatic, normocephalic. PERRLA. NECK: Supple. Trachea midline. CV: S1, S2 appreciated. No murmurs, gallops, or rubs noted. RESPIRATORY: He does have decreased lung sounds on the right. No rales, rhonchi, or wheezes noted to the left. ABDOMEN: Somewhat distended, with his umbilicus somewhat poking out. Bowel sounds are active, 4 quadrants. No tenderness. EXTREMITIES: Bilateral pedal pulses are palpable. He does not have any pitting edema. SKIN: Intact. NEUROLOGIC: No focal deficits noted. ASSESSMENT AND PLAN: 1. Right pleural effusion, multifactorial, secondary to [id number]-[id number] systolic congestive heart failure. He was just discharged yesterday on the . He had been aggressively diuresed with IV Lasix. We will continue with IV Lasix. He did receive a dose in the ER. We will continue it tonight, and in the a.m., we have scheduled him for an ultrasound -guided thoracentesis in the morning. We will continue on his home medications. 2. Djhgm-cd-sygjoqz systolic heart failure. See #1. 3. Severe nonischemic cardiomyopathy. We will continue home medications, and again have him follow up with electrophysiology for consideration for implantable defibrillator, 4. Hypertensive cardiovascular disease. Will continue on home medications. 5. History of alcohol abuse. The patient will continued to be counseled on abstinence. 6. Chronic obstructive pulmonary disease, without exacerbation. We will continue on supplemental oxygen and bronchodilators p.r.n. for any wheezing. 7. Mild hypoxia. We will place him on supplemental oxygen, and we will check him again for the need of home oxygen while he is in the hospital. We will also get Rivet Bucker on board for medication assistance, as well as insurance assistance. 8. Medical noncompliance. We did educate the patient on the need to get his medications filled and take them correctly, to restrict his fluids, and to watch his sodium intake. We will also get Palliative Care on board to speak with him about goals of care and his disease progression. I do not feel that he truly grasps the severity of his illness. 9. Further recommendations to follow physician evaluation, laboratory data, and diagnostic data. Dictated by YESSICA Morin for Chance Best MD Addendum: Patient seen and examined by myself. Agree with YESSICA note. It reflects my assessment and plan. Patient is being readmitted to hospital for shortness of breath secondary to right pleural effusion and also for not being compliant with his medications. Will arrange for a thoracentesis tomorrow and will continue with home medications. He will need to use home oxygen. Will monitor patient closely. cc: MD Lamberto Forbes Jr, MD Cesar Garcia-Rodriguez, MD [facility]
[2018-07-16] MEDS: COREG PO SCH (21:00)
[2018-07-16] MEDS ORDERED: MICRO-K PO SCH (21:00)
[2018-07-17] MEDS: LASIX IV SCH (06:50)
--- NOTE | 2018-07-17 08:00 | Diag Imaging Result Doc PS360 ---
EXAM: CHEST-2 VIEWS 07/17/2018 HISTORY: INSP/EXP POST THORCENTESIS TECHNIQUE: Inspiratory expiratory AP upright chest COMMENT: The right pleural fluid collection seen on 07/16/2018 has been largely evacuated. There is no evidence of pneumothorax. There is some residual atelectasis in the medial right lower lobe. There is cardiomegaly. IMPRESSION: Improved right pleural effusion. Electronically signed by Darrin Paulino 07/17/2018 7:57 AM
--- NOTE | 2018-07-17 08:01 | Diag Imaging Result Doc PS360 ---
EXAM: US THORACENTESIS W/IMAGE GUIDE 07/17/2018 HISTORY: Worsening R pl effussion TECHNIQUE: Ultrasound-guided right thoracentesis COMMENT: The risks and benefits of the procedure including the possibility of bleeding, infection, reaction to lidocaine, or pneumothorax was discussed with the patient and he agreed to the procedure. Following sterile preparation the skin and administration of 1% lidocaine to the skin and deeper soft tissues, the thoracentesis catheter was placed posteriorly on the right and subsequently 1500 mL of dark reddish-carlyn fluid was drained. This is sent to the laboratory in its entirety. There appears to be some solid debris within the fluid. The patient tolerated the procedure well. There are no immediate complications. IMPRESSION: Successful right ultrasound-guided thoracentesis. Electronically signed by Darrin Paulino 07/17/2018 7:59 AM
[2018-07-17] MEDS ORDERED: KLOR-CON PO SCH (09:00)
[2018-07-17] MEDS ORDERED: COZAAR PO SCH (09:00)
[2018-07-17] MEDS ORDERED: CRESTOR PO SCH (09:00)
[2018-07-17 09:03] LABS: BASO# 0.02 X1000 (0.0-0.2); BASO% 0.2 % (0.0-0.8); EOS# 0.17 X1000 (0.0-0.7); EOS% 1.9 % (0.0-10.0); HEMATOCRIT 43.2 % (42.0-52.0); HEMOGLOBIN 14.8 g/dL (14.0-18.0); LYMPH# 1.83 X1000 (1.2-3.4); LYMPH% 20.9 % (20.5-51.1); MCH 27.3 PG (27-31); MCHC 34.3 g/dL (33-37); MCV 79.6 FL (81-99); MONO# 0.93 X1000 (0.11-0.59); MONO% 10.6 % (1.7-9.3); MPV 10.3 FL (7.4-10.4); NEUT% 66.4 % (42.2-75.2); PLT 304 X1000 (130-400); RBC 5.43 XMIL (4.7-6.1); RDW 19.6 % (11.5-14.5); WBC 8.75 X1000 (4.8-10.8)
[2018-07-17] MEDS: COREG PO SCH (09:09)
[2018-07-17 09:26] LABS: AMYLASE BODY FLUID 46 U/L; GLUCOSE BODY FLUID 154 mg/dL; LDH BODY FLUID 109 U/L; TOTAL PROT BODY FLUID 3.5 g/dL
[2018-07-17 09:30] LABS: AGAP 14; ALB/GLOB RATIO 1.3; ALBUMIN 3.8 g/dL (3.5-5.0); ALKALINE PHOSPHATASE 147 U/L (32-122); BUN 16 mg/dL (8-22); CALCIUM 9.1 mg/dL (8.8-10.2); CHLORIDE 98 mmol/L (98-107); COSMO 277; ESTIMATED GFR > 60; GLUCOSE 109 mg/dL (70-104); GOT 25 U/L (10-34); GPT 16 U/L (10-44); MAGNESIUM 1.9 mg/dL (1.5-2.7); POTASSIUM 3.6 mmol/L (3.5-5.1); SODIUM 138 mmol/L (136-145); TCO2 26 mmol/L (25-35); TOTAL BILIRUBIN 2.23 mg/dL (0.20-1.00); TOTAL PROTEIN 6.8 g/dL (6.3-8.3)
[2018-07-17 09:46] LABS: BODY FLUID SOURCE PLEURAL FLUID; SPECIMEN PLEURAL FLUID
[2018-07-17 09:47] LABS: WBC BF 146 /cumm
[2018-07-17 10:45] LABS: O2HB 86.9 % (95.0-99.0)
[2018-07-17 10:48] LABS: MONOS 82 %; POLYS 18 %
[2018-07-17 12:33] VITALS: BP 97/75
--- NOTE | 2018-07-19 16:03 | DISCHARGE SUMMARY ---
ADMISSION DATE: 07/16/2018 DISCHARGE DATE: 07/17/2018 DISCHARGE DIAGNOSES: 1. Right pleural effusion improved. 2. Acute on chronic systolic heart failure. 3. Nonischemic cardiomyopathy. 4. History of noncompliance with medication. 5. Hypertensive heart disease. 6. History of alcohol abuse. 7. History of polysubstance abuse. 8. Chronic obstructive pulmonary disease not on any exacerbation. PROCEDURES: 1. Chest x-ray done on admission showed no interval improvement with moderate sized right sided pleural effusion. 2. Chest CT showed worsening right pleural effusion and lower lobe atelectasis with pulmonary edema, and improved mediastinal adenopathy. 3. Thoracentesis ultrasound removed 1.5 L of dark reddish carlyn fluid. 4. Chest x-ray done just after thoracentesis showed no evidence of pneumothorax and improved right pleural effusion. HOSPITAL COURSE: Mr. Schwartz is a 38-year-old male, who was just discharged from the hospital 1 day ago. He was admitted for 19 days for acute on chronic systolic heart failure. The reason why he came to the hospital was shortness of breath and need for some oxygen supplementation. In the ER, he reports that in the ER he was noted to require 2 L of oxygen by nasal cannula. Further workup revealed that right pleural effusion had gotten worse so we have ordered a thoracentesis with results as above. Next day, the patient was feeling better, but on home O2 evaluation by walking he qualified for home oxygen so oxygen supplementation at home was arranged. We have not made any changes to his current medications in comparing with his last admission. We have strongly emphasized the importance of being compliant with his medication. We have checked that he did not refill his medications so patient encourage to do that. The patient is going to be discharged in stable condition. DISCHARGE PHYSICAL EXAMINATION: Temperature 98.3 degrees, heart rate 72, respiratory rate 18, blood pressure 97/75, and O2 saturation 92% on room air. General: This is a chronically ill- looking 38-year-old male, lying in bed in no acute distress. HEENT: Head is normocephalic, atraumatic. Neck: No JVD noted. No carotid bruits. No lymphadenopathy. No thyromegaly. Cardiovascular: S1-S2 heard. No murmurs, gallops, or rubs. Regular rate and rhythm. Respiratory: Clear bilaterally to auscultation. No work of breathing or using accessory muscles. Abdomen: Soft, nontender to palpation. Bowel sounds present. No organomegaly. Extremities.: No clubbing or cyanosis, mild edema in both lower extremities. Peripheral pulses present in both legs. Neurological: Patient alert and oriented x3. Moves all 4 extremities. DISCHARGE DISPOSITION: Home to self-care. FOLLOW UP: The patient from last visit to the hospital was supposed to be seen by Cardiology to coordinate arrangements to be seen by electrophysiology service at [facility] for defibrillator placement considering his severe and advanced non ischemic cardiomyopathy. We are not going to make any changes to his current treatment. cc: Chance Best MD
== END 2018-07-17 16:17 | disposition home or self-care (01) | DRG 292 ==
LOC: ED 08:37 → EDIPHOLD 08:37 → OBSVTOIN 15:27 → 3N 21:21
PROVIDERS: ATTEND Internal Medicine
CPT/HCPCS: 32421; 32555; 71020; 71046; 71260; 80053; 81001; 82150; 82550; 82805; 82945; 83605; 83615; 83735; 83880; 83986; 84157; 84484; 85025; 85610; 85730; 87070; 87102; 87116; 87147; 87205; 87206; 87275; 87276; 87804; 89051; 93005; 94761; 94799; 96374; 96376; 99285; A9270; J1940; Q9967